=== PATIENT | female | born 1980 | race Caucasian/White ===

== ENCOUNTER 2022-03-12 04:51 | Emergency (ER) | payer OTHER, BC ==
[2022-03-12] MEDS ORDERED: OXYMETAZOLINE 0.05% NASAL SOLUTION 15 ML BOTTLE NS PRN (05:05)
[2022-03-12 05:14] VITALS: PULSE 89; RESP 17; TEMP 98.1; BMI 38.7
[2022-03-12 06:32] VITALS: BP 136/89
== END 2022-03-12 06:13 | disposition home or self-care (01) ==
LOC: JER 04:51
DX: R04.0 Epistaxis (principal)
CPT/HCPCS: 99283-25